=== PATIENT | male | born 1980 ===

== ENCOUNTER → 2018-08-31 | Outpatient (CLI) | payer OTHER ==
[2018-09-01 07:14] LABS: HIV SCREEN 4TH GENERATION WRFX Non Reactive (Non Reactive)
== END | disposition home or self-care (01) ==
LOC: LAB 12:18 → LAB SHORT 12:18
PROVIDERS: Physician Assistant Surgical
DX: Z00.00 Encounter for general adult medical examination without abnormal findings (principal)
CPT/HCPCS: 86592; 87389

== ENCOUNTER → 2021-11-14 | Outpatient (CLI) | payer OTHER ==
[2021-11-15 07:12] LABS: HIV AB/P24 AG SCREEN Non Reactive (Non Reactive)
== END | disposition home or self-care (01) ==
LOC: LAB SHORT 14:06
PROVIDERS: Nurse Practitioner Acute Care
DX: Z11.4 Encounter for screening for human immunodeficiency virus [HIV] (principal)
CPT/HCPCS: 87389